=== PATIENT | male | born 1980 | race Caucasian/White ===

== ENCOUNTER 2023-10-15 08:10 | Emergency (ER) | payer MEDICAID ==
[~2023-10-15] VITALS: Ht 177.8 cm; Wt 86.1 kg
[2023-10-15 08:16] VITALS: TEMP 98.4; O2SAT 100
[2023-10-15 08:47] LABS: BASOPHILS % 0.6 % (0.0-2.0); EOSINOPHILS % 1.6 % (0.0-5.0); HEMATOCRIT. 45.5 % (42.0-52.0); HEMOGLOBIN. 14.8 g/dL (14.0-18.0); LYMPHOCYTES % 13.7 % (20.0-50.0); MEAN CORPUSCULAR HEMOGLOBIN 27.2 pg (28.0-32.0); MEAN CORPUSCULAR HGB CONC 32.5 g/dL (31.0-37.0); MEAN CORPUSCULAR VOLUME 83.7 fL (80.0-94.0); MEAN PLATELET VOLUME 8.4 fl (7.4-10.4); MONOCYTES % 8.7 % (2.0-8.0); NEUTROPHILS % 75.4 % (40.0-76.0); PLATELET 240 x1000/uL (130-400); RED BLOOD CELL COUNT 5.44 mill/uL (4.7-6.1); RED CELL DISTRIBUTION WIDTH 15.7 % (11.6-14.6); WHITE BLOOD COUNT 13.9 x1000/uL (4.5-11.0)
[2023-10-15 08:55] LABS: CHLORIDE 104 mEq/L (98-107); POTASSIUM 3.9 mEq/L (3.5-5.1); SODIUM 135 mEq/L (136-145)
[2023-10-15 08:56] LABS: CARBON DIOXIDE 26 mEq/L (21-32)
[2023-10-15 08:57] LABS: CALCIUM 9.5 mg/dL (8.7-10.4)
[2023-10-15 09:01] LABS: CREATININE 0.8 mg/dL (0.6-1.3); GLUCOSE 108 mg/dL (70-105)
[2023-10-15 09:02] LABS: UREA NITROGEN BLOOD 12 mg/dL (9-23)
[2023-10-15 09:03] LABS: ALANINE AMINOTRANSFERASE 39 IU/L (10-49); ALBUMIN 4.9 g/dL (3.2-4.8); ASPARTATE AMINOTRANSFERASE 22 IU/L (<34)
[2023-10-15 09:04] LABS: BILIRUBIN DIRECT 0.2 mg/dL (<=3.0); BILIRUBIN TOTAL 0.9 mg/dL (0.1-1.0); PROTEIN TOTAL 7.8 g/dL (6.0-8.3)
[2023-10-15] MEDS ORDERED: AMOX1TAB16 MT (09:17)
[2023-10-15 09:45] VITALS: BP 142/96; PULSE 104; RESP 20
[2023-10-15] MEDS: KETOROLAC 30MG/ML VIAL IM ONE (09:45)
[2023-10-15] MEDS: DICYCLOMINE HCL 10MG/ML 2ML VIAL IM ONE (09:45)
== END 2023-10-15 09:55 | disposition home or self-care (01) ==
LOC: ER 08:10
DX: K57.92 Diverticulitis of intestine, part unspecified, without perforation or abscess without bleeding (principal); K59.00 Constipation, unspecified
CPT/HCPCS: 80076; 80048; 85025; 36415; 74176; 96372; 99285; J0500; J1885; Z7610

== ENCOUNTER 2024-12-10 16:12 | Emergency (ER) | payer MEDICAID ==
[~2024-12-10] VITALS: Ht 172.7 cm; Wt 99.1 kg
[~2024-12-10 16:12] MED LIST: AMOX1TAB16 MT
[2024-12-10 16:16] VITALS: TEMP 37.2; O2SAT 99
[2024-12-10 16:55] LABS: CLARITY URINE CLEAR (CLEAR); COLOR URINE YELLOW (YELLOW); GLUCOSE URINE NEGATIVE (NEGATIVE); KETONES URINE NEGATIVE (NEGATIVE); LEUKOCYTE ESTERASE URINE NEGATIVE (NEGATIVE); NITRITE URINE NEGATIVE (NEGATIVE); OCCULT BLOOD URINE 2+ (NEGATIVE); PH URINE 5.5 (4.5-8.0); PROTEIN URINE NEGATIVE (NEGATIVE); SPECIFIC GRAVITY URINE 1.016 (1.005-1.030); UROBILINOGEN URINE 1.0 E.U./dL (0.2-1.0)
[2024-12-10 16:59] LABS: BASOPHILS % 0.6 % (0.0-2.0); EOSINOPHILS % 1.0 % (0.0-5.0); HEMATOCRIT. 43.1 % (42.0-52.0); HEMOGLOBIN. 14.1 g/dL (14.0-18.0); LYMPHOCYTES % 17.8 % (20.0-50.0); MEAN PLATELET VOLUME 8.6 fl (7.4-10.4); MONOCYTES % 8.0 % (2.0-8.0); NEUTROPHILS % 72.6 % (40.0-76.0); PLATELET 209 x1000/uL (130-400); RED BLOOD CELL COUNT 5.22 mill/uL (4.7-6.1); RED CELL DISTRIBUTION WIDTH 14.8 % (11.6-14.6)
[2024-12-10 17:02] LABS: BACTERIA URINE RARE; SQUAMOUS EPITHELIAL CELL URINE RARE /lpf (RARE/1+); WBC URINE 0-2 /hpf (0-2)
[2024-12-10 17:12] LABS: CREATININE 0.9 mg/dL (0.6-1.3); UREA NITROGEN BLOOD 10 mg/dL (9-23)
[2024-12-10] MEDS ORDERED: ACETAMINOPHEN 325MG TABLET PO ONE (17:45)
[2024-12-10] MEDS: KETOROLAC 30MG/ML VIAL IV ONE (18:03)
[2024-12-10] MEDS: ONDANSETRON HCL 4MG/2ML INJ IV ONE (18:03)
[2024-12-10] MEDS ORDERED: CIPR-263 MT (19:46)
[2024-12-10] MEDS ORDERED: METR-167 MT (19:47)
[2024-12-10 20:18] VITALS: BP 144/87; PULSE 100; RESP 12; O2SAT 97
[2024-12-10] MEDS: METRONIDAZOLE 500MG TABLET PO SCH (20:19)
[2024-12-10] MEDS: LEVOFLOXACIN 500MG TABLET PO SCH (20:19)
[2024-12-10] MEDS ORDERED: IOHEXOL-300 100 ML BOTTLE ONE (20:27)
== END 2024-12-10 20:26 | disposition home or self-care (01) ==
LOC: ER 16:12
DX: K57.32 Diverticulitis of large intestine without perforation or abscess without bleeding (principal); R10.32 Left lower quadrant pain; Z79.899 Other long term (current) drug therapy
CPT/HCPCS: 99285; 74177; 96374; 96375; 80048; 81003; 83690; 85025; 36415; J1885; Q9967; J2405